=== PATIENT | male | born 1955 | race American Indian/Alaskan Native ===

== ENCOUNTER 2017-04-03 11:09 | Emergency (ER) | payer OTHER ==
[~2017-04-03] VITALS: Ht 167.6 cm; Wt 89.4 kg
[2017-04-03] MEDS ORDERED: SODIUM CHLORIDE 0.9% 1,000ML IVBOLUS ONE (12:00)
[2017-04-03] MEDS ORDERED: SODIUM CHLORIDE FLUSH 10ML SYR IVF ONE (12:00)
[2017-04-03 12:17] LABS: HEMATOCRIT 44.8 % (39.2-51.8); WHITE BLOOD COUNT 7.7 x10^3/uL (3.4-10)
[2017-04-03 12:30] LABS: BLOOD UREA NITROGEN 10 mg/dL (7-18)
[2017-04-03 14:32] VITALS: BP 150/76
== END 2017-04-03 14:40 | disposition home or self-care (01) ==
LOC: ED 14:15
DX: E11.65 Type 2 diabetes mellitus with hyperglycemia (principal); B08.5 Enteroviral vesicular pharyngitis
CPT/HCPCS: 36415; 71010; 80048; 81003; 82010; 82040; 82800; 82962; 83605; 85025; 87081; 87880; 93005; 96360; 99285; J7030

== ENCOUNTER → 2020-10-21 | Outpatient (CLI) | payer OTHER ==
[~2020-10-21] MED LIST: OMNIPAQUE 350 MG/ML, 150 ML BOTTLE ONE
== END | disposition home or self-care (01) ==
LOC: CFH 13:09
PROVIDERS: ATTEND Urology
DX: K40.90 Unilateral inguinal hernia, without obstruction or gangrene, not specified as recurrent (principal); R31.0 Gross hematuria; N40.0 Benign prostatic hyperplasia without lower urinary tract symptoms; R97.20 Elevated prostate specific antigen [PSA]
CPT/HCPCS: 74178; Q9967

== ENCOUNTER 2020-11-13 20:34 | Emergency (ER) | payer OTHER ==
[~2020-11-13] VITALS: Ht 167.6 cm; Wt 113.4 kg
[2020-11-13 20:36] VITALS: BP 200/88
--- NOTE | 2020-11-13 20:50 | NUR ---
ASSUMED CARE OF PATIENT. PATIENT HAS PART OF HIS EARBUD STUCK IN HIS RIGHT EAR. VS STABLE. NO ACUTE DISTRESS NOTED. CALL LIGHT IN PLACE. WILL CONTINUE TO MONITOR.
== END 2020-11-13 21:19 | disposition home or self-care (01) ==
LOC: ED 21:00
DX: T16.1XXA Foreign body in right ear, initial encounter (principal); E11.65 Type 2 diabetes mellitus with hyperglycemia; W45.8XXA Other foreign body or object entering through skin, initial encounter; Y93.89 Activity, other specified; Y92.89 Other specified places as the place of occurrence of the external cause; Y99.8 Other external cause status
CPT/HCPCS: 69200; 99284